=== PATIENT | female | born 1960 | race American Indian/Alaskan Native ===

== ENCOUNTER 2022-05-02 11:02 | Emergency (ER) | payer SELFPAY ==
[2022-05-02 12:06] VITALS: BP 157/87
== END 2022-05-03 15:59 | disposition left against medical advice (07) ==
LOC: ED 11:02
DX: K08.89 Other specified disorders of teeth and supporting structures (principal); Z53.21 Procedure and treatment not carried out due to patient leaving prior to being seen by health care provider